=== PATIENT | female | born 1985 | race Caucasian/White ===

== ENCOUNTER 2021-03-22 15:20 | Emergency (ER) | payer BC ==
[~2021-03-22] VITALS: Ht 165.1 cm; Wt 510.3 kg
--- NOTE | 2021-03-22 15:49 | NUR ---
DR NICK AT BEDSIDE FOR EVAL.
--- NOTE | 2021-03-22 16:02 | NUR ---
IV LINE STARTED BLOOD DRAWN AND SENT TO LAB.
[2021-03-22 16:16] LABS: BASOPHILS # (AUTO) 0.1 K/uL (0.0-0.2); BASOPHILS % (AUTO) 0.8 % (0.0-2.0); EOSINOPHILS % (AUTO) 1.7 % (0.0-6.0); HEMATOCRIT 38 % (33-45); HEMOGLOBIN 12.9 g/dL (11.5-14.8); LYMPHOCYTES # (AUTO) 1.6 K/uL (0.8-4.8); LYMPHOCYTES % (AUTO) 20.4 % (20.0-44.0); MEAN CORPUSCULAR HGB CONC 34 g/dl (31.0-36.0); MEAN CORPUSCULAR VOLUME 95 fL (82-100); MONOCYTES # (AUTO) 0.4 K/uL (0.1-1.30); MONOCYTES % (AUTO) 5.6 % (2.0-12.0); NEUTROPHILS # (AUTO) 5.6 K/uL (1.8-8.9); NEUTROPHILS % (AUTO) 71.5 % (43.0-81.0); PLATELET COUNT (AUTO) 258 K/uL (150-450); RED BLOOD CELL COUNT(AUTO) 3.99 MIL/uL (4.0-5.2); WHITE BLOOD COUNT (AUTO) 7.9 K/uL (4.3-11.0)
--- NOTE | 2021-03-22 16:16 | NUR ---
U/S TECH AT BEDSIDE FOR GALLBLADDER ULTRASOUND.
[2021-03-22 16:24] LABS: BILIRUBIN,URINE SMALL (NEGATIVE); COLOR,URINE YELLOW (YELLOW); LEUKOCYTE ESTERASE ,URINE Negative (NEGATIVE); NITRITE, URINE Negative (NEGATIVE); PH,URINE 5.5 (5.0-8.0); PROTEIN,URINE Negative (NEGATIVE); UGLUCOSE Negative (NEGATIVE); UROBILINOGEN,URINE 0.2 EU/dL (0.2)
[2021-03-22] MEDS: IV NS 0.9% 1,000 ML BAG IV ONE (16:30)
[2021-03-22 16:39] LABS: ALBUMIN 3.9 g/dL (3.4-5.0); BILIRUBIN,DIRECT 0.1 mg/dL (0.0-0.2); BILIRUBIN,TOTAL 0.3 mg/dL (0.2-1.0); CALCIUM, SERUM 8.7 mg/dL (8.5-10.1); CREATININE 0.8 mg/dL (0.6-1.3); POTASSIUM 3.6 mmol/L (3.5-5.1); TOTAL PROTEIN, SERUM 7.1 g/dL (6.4-8.2)
[2021-03-22 16:43] LABS: RBC,URINE 0-2 /HPF (0-2); WBC,URINE 0-2 /HPF (0-3)
[2021-03-22 16:44] LABS: BACTERIA,URINE Few /HPF (None Seen)
[2021-03-22 16:45] LABS: MUCUS,URINE Moderate /LPF (None Seen); URINE AMORPHOUS URATE Few /HPF (None Seen)
[2021-03-22] MEDS ORDERED: IOHEXOL-300 100 ML VIAL IV ONE (16:49)
[2021-03-22] MEDS ORDERED: KETOROLAC TROMETHAMINE 15 MG/ML VIAL ONE (16:49)
[2021-03-22] MEDS ORDERED: CT SWABBABLE VALVE TRANS SET 1 EA INFUS.SET MC ONE (16:50)
[2021-03-22] MEDS ORDERED: IV NS 0.9% 250 ML IV ONE (16:50)
--- NOTE | 2021-03-22 16:50 | NUR ---
PT TO RADIOLOGY FOR ABDOMINAL CT SCAN VIA [facility].
[2021-03-22] MEDS: KETOROLAC TROMETHAMINE INJ 30 MG/ML VIAL IV ONE (17:10)
--- NOTE | 2021-03-22 17:30 | NUR ---
U/S TECH BACK AT BEDSIDE FOR PELVIC ULTRASOUND.
--- NOTE | 2021-03-22 18:36 | NUR ---
Patient discharged to home in stable condition. Written and verbal after care instructions given. Patient verbalizes understanding of instruction.IV removed. Catheter intact and site benign. Pressure and 4x4 applied to site. No bleeding noted.
[2021-03-22 18:37] VITALS: BP 133/80
== END 2021-03-22 18:37 | disposition home or self-care (01) ==
LOC: ER 15:55
DX: R10.31 Right lower quadrant pain (principal); N83.8 Other noninflammatory disorders of ovary, fallopian tube and broad ligament; Z88.0 Allergy status to penicillin
CPT/HCPCS: 36415; 74177; 76705; 76856; 80048; 80076; 81001; 83690; 84443; 84703; 85025; 96361; 96374; 99285; J1885; J7030; J7050; Q9967